=== PATIENT | female | born 1965 | race Hispanic/Latino ===

== ENCOUNTER 2017-02-17 14:30 | Emergency (ER) | payer SELFPAY ==
[2017-02-17 15:47] LABS: Alanine Aminotransferase 34 units/L (7-56); Albumin 4.2 g/dL (3.9-5); Albumin/Globulin Ratio 1.7 %; Alkaline Phosphatase 65 units/L (35-129); Anion Gap 16 mmol/L; BUN/Creatinine Ratio 30; Bilirubin,Total < 0.20 mg/dL (0.1-1.2); Blood Urea Nitrogen 15 mg/dL (7-17); Calcium 8.6 mg/dL (8.4-10.2); Carbon Dioxide 27 mmol/L (22-30); Chloride 102.6 mmol/L (98-107); Glucose 80 mg/dL (65-100); Lipase 80 units/L (13-60); Potassium 3.8 mmol/L (3.6-5.0); Sodium 142 mmol/L (137-145); Total Protein 6.7 g/dL (6.3-8.2)
[2017-02-17 16:05] LABS: Hemoglobin 12.5 gm/dl (10.1-14.3); Mean Corpuscular HGB Conc 33 % (30-34); Mean Corpuscular Hemoglobin 29 pg (28-32); Mean Corpuscular Volume 88 fl (79-97); Platelet Count 272 K/mm3 (140-440); Red Blood Count 4.32 M/mm3 (3.65-5.03); Red Cell Distribution Width 14.4 % (13.2-15.2); White Blood Count 6.8 K/mm3 (4.5-11.0)
[2017-02-17 16:09] LABS: Bacteria,Urine 1+ /HPF (Negative); Bilirubin,Urine NEG (Negative); Blood,Urine NEG (Negative); Ketones,Urine NEG (Negative); Leukocyte Esterase,Urine LG (Negative); Nitrite,Urine NEG (Negative); Protein,Urine <15 mg/dL mg/dL (Negative); Urobilinogen,Urine < 2.0 mg/dL (<2.0)
[2017-02-17 16:56] LABS: Blastocytes % (Manual) 0 %; Diff Status Complete; Ovalocytes Few
[2017-02-17] MEDS ORDERED: MACROBID PO ONE (20:17)
[2017-02-17] MEDS ORDERED: PERCOCET 5/325 PO ONE (20:17)
--- NOTE | 2017-02-17 20:24 | Emergency Department Report ---
ED Female HPI - General Chief complaint: Abdominal Pain Stated complaint: LOWER BACK AND ABD PAIN Time Seen by Provider: 02/17/17 20:08 Source: patient Mode of arrival: Ambulatory Limitations: No Limitations - History of Present Illness Initial comments: 51-year-old female presents to the hospital complaining of abdominal pain and lower back pain. Patient recently traveled here from [place] on February 11. She left her [facility] 5/325 behind. She has a history of lumbar fusion earlier this year and has chronic back pain. For the past 6 days patient has had lower back pain and lower abdominal pain. Lower abdominal pain is cramping, constant , worse with palpation. Patient denies dysuria but has a frequency and malodorous urine. No complaints of fever, nausea, or vomiting. - Related Data Previous Rx's Medication Instructions Recorded Last Taken Type Nitrofurantoin Monohyd/M-Cryst 100 mg PO BID #14 capsule 02/17/17 Unknown Rx [Macrobid 100 mg Capsule] oxyCODONE /ACETAMINOPHEN [Percocet 1 tab PO Q6HR PRN #20 tablet 02/17/17 Unknown Rx 325] Allergies Allergy/AdvReac Type Severity Reaction Status Date / Time aspirin Allergy Unknown Verified 02/17/17 15:13 ED Review of Systems ROS: Stated complaint: LOWER BACK AND ABD PAIN Other details as noted in HPI Comment: All other systems reviewed and negative Other: Constitutional: No fevers chills Eyes: No eye pain visual changes ENT: No ear pain or throat pain Neck: Denies pain Respiratory: Denies cough wheezing shortness of breath Cardiovascular: Denies chest pain, palpitations, syncope GI: Denies nausea, vomiting, diarrhea : as per hpi Musculoskeletal: as per hpi Skin: Denies rash, lesions, erythema Neurologic: Denies headache, numbness, weakness Psychiatric: Denies suicidal ideation, hallucinations ED Past Medical Hx - Past Medical History Additional medical history: Anemia, hypoglycemia - Surgical History Past Surgical History?: Yes Additional Surgical History: Lumbar fusion July and August 2016 - Social History Smoking Status: Never Smoker - Medications Home Medications: Home Medications Medication Instructions Recorded Confirmed Last Taken Type Nitrofurantoin Monohyd/M-Cryst 100 mg PO BID #14 capsule 02/17/17 Unknown Rx [Macrobid 100 mg Capsule] oxyCODONE /ACETAMINOPHEN [Percocet 1 tab PO Q6HR PRN #20 tablet 02/17/17 Unknown Rx 5/325] ED Physical Exam - General Limitations: No Limitations - Other Other exam information: General: No limitations, patient is alert in no acute distress Head exam: Atraumatic, normocephalic Eyes exam: Normal appearance ENT: Moist mucous membrane, normal oropharynx Neck exam: Normal inspection, full range of motion, Respiratory exam: Clear to auscultation bilateral, no wheezes, rales, crackles Cardiovascular: Normal rate and rhythm, normal heart sounds Abdomen: Soft, nondistended, suprapubic tenderness, with normal bowel sounds, no rebound, or guarding Extremity: Midline vertical lumbar surgical scar. Paraspinal muscle tenderness Back: Normal Inspection, full range of motion, no tenderness Neurologic: Alert, oriented x3, cranial nerves intact, no motor or sensory deficit Psychiatric: normal affect, normal mood Skin: Warm, dry, intact ED Course Vital Signs 02/17/17 02/17/17 15:06 20:55 Temperature 98.2 F 98.6 F Pulse Rate 101 H 84 Respiratory 16 14 Rate Blood Pressure 124/78 Blood Pressure 124/79 [Left] Blood Pressure 124/78 124/79 [Right] O2 Sat by Pulse 97 Oximetry - Reevaluation(s) Reevaluation #1: 02/17/17 20:25 Percocet and Zofran ordered Reevaluation #3: 02/17/17 21:04 Initial tachycardia improved. ED Medical Decision Making - Lab Data Result diagrams: 02/17/17 15:16 02/17/17 15:16 Lab Results 02/17/17 02/17/17 02/17/17 Range/Units 15:16 15:16 15:47 WBC 6.8 (4.5-11.0) K/mm3 RBC 4.32 (3.65-5.03) M/mm3 Hgb 12.5 (10.1-14.3) gm/dl Hct 38.0 (30.3-42.9) % MCV 88 (79-97) fl MCH 29 (28-32) pg MCHC 33 (30-34) % RDW 14.4 (13.2-15.2) % Plt Count 272 (140-440) K/mm3 [place] % (Auto) Bark Spudder Add Manual Diff Complete Total Counted 100 Seg Neuts % (Manual) 68.0 (40.0-70.0) % Band Neutrophils % 7.0 % Lymphocytes % (Manual) 16.0 (13.4-35.0) % Reactive Lymphs % (Man) 0 % Monocytes % (Manual) 5.0 (0.0-7.3) % Eosinophils % (Manual) 3.0 (0.0-4.3) % Basophils % (Manual) 1.0 (0.0-1.8) % Metamyelocytes % 0 % Myelocytes % 0 % Promyelocytes % 0 % Blast Cells % 0 % Nucleated RBC % Not Reportable Seg Neutrophils # Man 4.6 (1.8-7.7) K/mm3 Band Neutrophils # 0.5 K/mm3 Lymphocytes # (Manual) 1.1 L (1.2-5.4) K/mm3 Abs React Lymphs (Man) 0.0 K/mm3 Monocytes # (Manual) 0.3 (0.0-0.8) K/mm3 Eosinophils # (Manual) 0.2 (0.0-0.4) K/mm3 Basophils # (Manual) 0.1 (0.0-0.1) K/mm3 Metamyelocytes # 0.0 K/mm3 Myelocytes # 0.0 K/mm3 Promyelocytes # 0.0 K/mm3 Blast Cells # 0.0 K/mm3 WBC Morphology Not Reportable Hypersegmented Neuts Not Reportable Hyposegmented Neuts Not Reportable Hypogranular Neuts Not Reportable Smudge Cells Not Reportable Toxic Granulation Not Reportable Toxic Vacuolation Not Reportable Dohle Bodies Not Reportable Pelger-Huet Anomaly Not Reportable Radha Rods Not Reportable Platelet Estimate Appears normal Clumped Platelets Not Reportable Plt Clumps, EDTA Not Reportable Large Platelets Not Reportable Giant Platelets Not Reportable Platelet Satelliting Not Reportable Plt Morphology Comment Not Reportable RBC Morphology Not Reportable Dimorphic RBCs Not Reportable Polychromasia Not Reportable Hypochromasia Not Reportable Poikilocytosis Not Reportable Anisocytosis Not Reportable Microcytosis Not Reportable Macrocytosis Not Reportable Spherocytes Not Reportable Pappenheimer Bodies Not Reportable Sickle Cells Not Reportable Target Cells Not Reportable Tear Drop Cells Not Reportable Ovalocytes Few Helmet Cells Not Reportable Sal-[place] Bodies Not Reportable Corn[place] Rings Not Reportable [place] Cells Not Reportable Bite Cells Not Reportable Crenated Cell Not Reportable Elliptocytes Not Reportable Acanthocytes (Spur) Not Reportable Rouleaux Not Reportable Hemoglobin C Crystals Not Reportable Schistocytes Not Reportable Malaria parasites Not Reportable Tuan Bodies Not Reportable Hem Pathologist Commnt No Sodium 142 (137-145) mmol/L Potassium 3.8 (3.6-5.0) mmol/L Chloride 102.6 (98-107) mmol/L Carbon Dioxide 27 (22-30) mmol/L Anion Gap 16 mmol/L BUN 15 (7-17) mg/dL Creatinine 0.5 L (0.7-1.2) mg/dL Estimated GFR > 60 ml/min BUN/Creatinine Ratio 30 % Glucose 80 (65-100) mg/dL Calcium 8.6 (8.4-10.2) mg/dL Total Bilirubin < 0.20 (0.1-1.2) mg/dL AST 23 (5-40) units/L ALT 34 (7-56) units/L Alkaline Phosphatase 65 (35-129) units/L Total Protein 6.7 (6.3-8.2) g/dL Albumin 4.2 (3.9-5) g/dL Albumin/Globulin Ratio 1.7 % Lipase 80 H (13-60) units/L Urine Color Straw (Yellow) Urine Turbidity Clear (Clear) Urine pH 6.0 (5.0-7.0) Ur Specific [place] 1.010 (1.003-1.030) Urine Protein <15 mg/dl (Negative) mg/dL Urine Glucose (UA) Neg (Negative) mg/dL Urine Ketones Neg (Negative) mg/dL Urine Blood Neg (Negative) Urine Nitrite Neg (Negative) Urine Bilirubin Neg (Negative) Urine Urobilinogen < 2.0 (<2.0) mg/dL Ur Leukocyte Esterase Lg (Negative) Urine WBC (Auto) 128.0 H (0.0-6.0) /HPF Urine RBC (Auto) 3.0 (0.0-6.0) /HPF U Epithel Cells (Auto) 1.0 (0-13.0) /HPF Urine Bacteria (Auto) 1+ (Negative) /HPF - Medical Decision Making Discharge patient home with treatment of acute UTI and pain medication. Follow- up will be encouraged. urine Cultures ordered - Differential Diagnosis UTI, chronic back pain, Critical Care Time: No Critical care attestation.: If time is entered above; I have spent that time in minutes in the direct care of this critically ill patient, excluding procedure time. ED Disposition Clinical Impression: UTI (urinary tract infection), Chronic back pain Disposition: TO HOME OR SELFCARE Is pt being admited?: No Does the pt Need Aspirin: No Condition: Stable Instructions: Urinary Tract Infection in Women (ED), Chronic Back Pain (ED) Additional Instructions: Take the medication as prescribed. Follow up with your doctor or the doctor/ clinic provided. Return if symptoms worse Prescriptions: Nitrofurantoin Monohyd/M-Cryst [Macrobid 100 mg Capsule] 100 mg PO BID #14 capsule oxyCODONE /ACETAMINOPHEN [Percocet 5/325] 1 tab PO Q6HR PRN #20 tablet PRN Reason: Pain Referrals: PRIMARY CAREMD [Primary Care Provider] - 3-5 Days JOAO AGUILAR MD [Staff Physician] - 3-5 Days (primary care doctor) [facility] [Provider Group] - 3-5 Days (primary care clinic) Time of Disposition: 21:04
[2017-02-17 20:56] VITALS: BP 124/79
== END 2017-02-17 21:33 | disposition home or self-care (01) ==
LOC: ED 14:30
DX: N39.0 Urinary tract infection, site not specified (principal); Z88.6 Allergy status to analgesic agent
CPT/HCPCS: 36415; 80053; 81001; 83690; 85007; 85025; 87086; 99283